=== PATIENT | male | born 1970 | race Caucasian/White ===

== ENCOUNTER 2022-12-31 09:10 | Day surgery (SDC) | payer BC ==
[~2022-12-31 09:10] MED LIST: LACTATED RINGERS 1,000 ML IV SCH; LIDOCAINE 1% (10MG/ML) FOR IV START INTRADERMA PRN
[2022-12-31 10:04] VITALS: RESP 16; TEMP 97.3
[2022-12-31] MEDS ORDERED: PROPOFOL 10 MG/ML 20 ML VIAL IV ONE (10:35)
--- NOTE | 2022-12-31 10:43 | P.GSHP ---
History of Present Illness H&P Date: 12/31/22 Chief Complaint: Colon cancer screening 52-year-old male here for colonoscopy. He has not had 1 previous it. No bowel complaints. No family history of colon cancer. Past Medical History Additional Past Medical History / Comment(s): Screening colonoscopy. seasonal allergies History of Any Multi-Drug Resistant Organisms: None Reported Past Surgical History: Appendectomy, Hernia Repair Additional Past Surgical History / Comment(s): wisdom teeth removed. rt inguinal hernia. broken leg repair Past Anesthesia/Blood Transfusion Reactions: No Reported Reaction Smoking Status: Never smoker - Past Family History Father Family Medical History: No Reported History Medications and Allergies Home Medications Medication Instructions Recorded Confirmed Type Unk Claritan 1 tab PO DAILY 12/27/22 12/31/22 History Unk Glucose Chondroitin 1 tab PO DAILY 12/27/22 12/27/22 History Unk Singulair 1 tab PO DAILY 12/27/22 12/31/22 History Unk Vitamin C 1 tab PO DAILY 12/27/22 12/27/22 History Unk Vitamin D3 1 tab PO DAILY 12/27/22 12/27/22 History Allergies Allergy/AdvReac Type Severity Reaction Status Date / Time No Known Allergies Allergy Verified 12/31/22 10:00 Surgical - Exam Vital Signs Temp Pulse Resp BP Pulse Ox 97.3 F L 71 16 171/92 97 12/31/22 10:03 12/31/22 10:03 12/31/22 10:03 12/31/22 10:03 12/31/22 10:03 Physical exam: General: Well-developed, well-nourished HEENT: Normocephalic, sclerae nonicteric Abdomen: Nontender, nondistended Extremities: No edema Neuro: Alert and oriented Assessment and Plan (1) Colon cancer screening Narrative/Plan: Will proceed with colonoscopy at this time. Current Visit: Yes Status: Acute Code(s): Z12.11 - ENCOUNTER FOR SCREENING FOR MALIGNANT NEOPLASM OF COLON SNOMED Code(s): 774947882
--- NOTE | 2022-12-31 10:54 | P.PCN ---
Date of Procedure: 12/31/22 Procedure(s) Performed: PREOPERATIVE DIAGNOSIS: Colon cancer screening POSTOPERATIVE DIAGNOSIS: Normal exam PROCEDURE: Colonoscopy ANESTHESIA: MAC SURGEON: Dennis Vásquez M.D. SPECIMENS: None ENDOSCOPIC PROCEDURE: The patient was placed on the endoscopy table in the left decubitus position. The Olympus colonoscope was inserted into the anus and passed under direct visualization to the base of the cecum. The appendiceal orifice was visualized. From that point the scope was slowly withdrawn inspecti ng all surfaces carefully. There were no neoplastic inflammatory or polypoid lesions throughout the cecum, ascending, transverse, descending, sigmoid and rectum. There was no visible diverticulosis noted. Digital rectal examination was normal. The patient was taken to the recovery room in stable condition per anesthesia guidelines. RECOMMENDATIONS: Resume diet. Repeat colonoscopy 10 years.
[2022-12-31 11:18] VITALS: BP 156/106; PULSE 68
== END 2022-12-31 11:57 | disposition home or self-care (01) ==
LOC: ORWHC2ENDO 09:10
PROVIDERS: ATTEND Surgery
DX: Z12.11 Encounter for screening for malignant neoplasm of colon (principal); Z90.49 Acquired absence of other specified parts of digestive tract; Z79.899 Other long term (current) drug therapy
CPT/HCPCS: 45378; J2704

== ENCOUNTER → 2023-06-04 | Outpatient (CLI) | payer BC ==
--- NOTE | 2023-06-04 13:26 | CT ---
EXAMINATION TYPE: CT iac wo con DATE OF EXAM: 06/04/2023 COMPARISON: None HISTORY: Tinnitus LT ear CT DLP: 142.7mGycm Automated exposure control for dose reduction was used. FINDINGS: The external auditory canals are patent bilaterally. Mastoid air cells show no evidence of abnormal opacification bilaterally. The middle ear ossicles are symmetric and unremarkable. There is no evidence of suspicious surrounding soft tissue density to suggest cholesteatoma. The scutum is preserved bilaterally. The cochlea and the semicircular canals are symmetric and unrem arkable. Vestibular aqueduct and internal carotid canal appear unremarkable. Temporomandibular join ts demonstrate mild arthropathy on the left. Extensive changes chronic. Mild to moderate sinusitis most marked involving the maxillary sinuses. Oc clusion of the right. Nasal septal deviation. Orbits are symmetric. IMPRESSION: 1. Findings compatible with mild to moderate sinusitis most marked involving the maxillary sinuses.
== END | disposition home or self-care (01) ==
LOC: RADCTMAIN 09:41
PROVIDERS: ATTEND Otolaryngology
DX: H93.12 Tinnitus, left ear (principal)
CPT/HCPCS: 70480

== ENCOUNTER → 2024-07-05 | Outpatient (CLI) | payer BC ==
--- NOTE | 2024-07-05 08:23 | US ---
EXAMINATION TYPE: US abdomen complete DATE OF EXAM: 07/05/2024 COMPARISON: NONE CLINICAL INDICATION: Male, 54 years old with history of R79.89 ELEVATED LFT'S; Patient denies any sig ns, symptoms, or relevant history TECHNIQUE: Grayscale and color Doppler imaging of the abdomen was performed. FINDINGS: EXAM MEASUREMENTS: Liver Length: 16.1 cm Gallbladder Wall: 0.2 cm CBD: .3 cm Spleen: 9.3 cm Right Kidney: 11.1 x 5.6 x 5.4 cm Left Kidney: 11.4 x 6.8 x 6.1 cm MEDICAL IMAGING DIRECTOR NOTES: Pancreas: wnl Liver: Increased attenuation Gallbladder: wnl Evidence for sonographic Bryant's sign: No CBD: wnl Spleen: wnl Right Kidney: wnl Left Kidney: wnl Upper IVC: wnl Abd Aorta: wnl The liver is homogenous. No focal lesion identified. Noncirrhotic morphology. The intrahepatic portio n of the IVC and proximal abdominal aorta are within normal limits. There is no evidence of cholelit hiasis. Common bile duct is unremarkable. The visualized portions of the pancreas are homogenous. The spleen is unremarkable. Kidneys are symmetric and free of hydronephrosis. No renal lesions are seen. IMPRESSION: No ultrasound evidence for an acute abdominal process. [facility], , 07/05/2024 8:21 AM
== END | disposition home or self-care (01) ==
LOC: RADUSWWP 07:27
PROVIDERS: ATTEND Pediatrics
DX: R79.89 Other specified abnormal findings of blood chemistry (principal)
CPT/HCPCS: 76700